=== PATIENT | female | born 1990 | race Caucasian/White ===

== ENCOUNTER 2022-01-23 20:38 | Emergency (ER) | payer OTHER, SELFPAY ==
[2022-01-23 21:28] VITALS: BP 130/81; PULSE 72; RESP 18; TEMP 36.7; O2SAT 100; BMI 21.5
== END 2022-01-24 00:26 | disposition left against medical advice (07) ==
PROVIDERS: Emergency Provider Emergency Medicine
CPT/HCPCS: 99281